=== PATIENT | male | born 1990 | race Asian ===

== ENCOUNTER 2017-02-28 12:13 | Emergency (ER) | payer OTHER ==
--- NOTE | 2017-02-28 12:45 | EDPHY ---
H & P Time Seen by Provider: 02/28/17 12:24 HPI/ROS: CHIEF COMPLAINT: Right lower abdominal and groin pain HISTORY OF PRESENT ILLNESS: 26-year-old male presents to the emergency department by private vehicle complaining of pain in his right low abdomen and groin area. The patient was doing some lifting over last 2 weeks and was starting to have some pain in his right lower abdomen and groin. He has been to urgent care as well as his primary care provider. He was told that his "testicles were normal and ". However they could not assess for possible inguinal hernia. The patient has an order for an outpatient testicular ultrasound ordered by his primary care provider. No urinary difficulties. No flank pain. No chest pain or difficulty breathing. His pain is worse with movement. REVIEW OF SYSTEMS: Constitutional: No fever, no chills. Eyes: No double or blurry vision. ENT: No sore throat. Respiratory: No cough, no shortness of breath. Cardiac: No chest pain. Gastrointestinal: See above. No vomiting or diarrhea. Genitourinary: No dysuria. Musculoskeletal: No neck or back pain. Skin: No rashes. Neurological: No headache. Past Medical/Surgical History: Negative Social History: Single and lives in [place] Smoking Status: Never smoked Physical Exam: General Appearance: Alert, no distress. Eyes: Pupils equal and round. Extraocular motions are all intact. ENT: Mouth: Mucous membranes moist. Respiratory: No wheezing, rhonchi, or rales, lungs are clear to auscultation. Cardiovascular: Regular rate and rhythm. Gastrointestinal: Abdomen is soft and nontender, no masses, no rebound or guarding, bowel sounds normal. No CVA tenderness bilaterally. Genitourinary: Declined examination Neurological: Alert and oriented x 3, cranial nerves II through XII grossly intact Skin: Warm and dry, no rashes. Musculoskeletal: Nontender to palpate along the cervical, thoracic or lumbar spine. Neck is supple. Extremities: Full range of motion and no peripheral edema. Psychiatric: Patient is oriented X 3, there is no agitation. Constitutional: Initial Vital Signs Temperature (C) 36.5 C 02/28/17 12:16 Heart Rate 74 02/28/17 12:16 Respiratory Rate 20 02/28/17 12:16 Blood Pressure 113/85 H 02/28/17 12:16 O2 Sat (%) 94 02/28/17 12:16 O2 Delivery Mode Room Air Allergies/Adverse Reactions: No Known Allergies Allergy (Verified 02/28/17 12:15) Home Medications: Medication Instructions Recorded NK [No Known Home Meds] 06/12/13 Medical Decision Making - Diagnostics Imaging Results: Imaging Impressions Abdomen Ultrasound 02/28/17 12:37 Impression: Negative. No hernia. Findings discussed with Emergency Department physician podiatrist assistant, Sara Srinivasan , at 1356 hours on February 28, 2017. Imaging: Discussed imaging studies w/ superintendent communications Radiologist ED Course/Re-evaluation: 26-year-old male presents to the emergency department with right groin pain. The patient was initially seen in urgent care as well as by his primary care provider.. He was told that he likely had an inguinal hernia. The patient initially refused a genitourinary exam. A limited abdominal ultrasound was ordered which revealed no evidence of hematoma or inguinal hernia. Patient was able to provide a urine specimen which revealed no blood and no signs of infection. Ultimately the patient agreed to have genitourinary exam. nurse Daniel was present at bedside for the exam. He has uncircumcised penis. Both testicles are descended. He has pain with palpation the left inguinal canal, however no palpable hernia or mass. Patient states that his pain has improved even since yesterday. I explained that it could just be a muscular strain. I did give him referral to general surgeon on-call and told him that if he has any problems he could follow up. He should follow up sooner if he developed worsening pain or any other concerns. Patient does not have any abdominal pain with palpation. He was serially re- examined. He does not have any evidence of acute appendicitis. I do not think CT imaging is indicated. Differential Diagnosis: Including but not limited to inguinal hernia, hematoma, acute appendicitis, muscular strain, muscular spasm, urinary tract infection, pyelonephritis, kidney stone - Data Points Laboratory Results: 02/28/17 13:05 Urine Color YELLOW Urine Appearance CLEAR Urine pH 5.0 (5.0-7.5) Ur Specific [place] 1.021 (1.002-1.030) Urine Protein NEGATIVE (NEGATIVE) Urine Ketones TRACE H (NEGATIVE) Urine Blood NEGATIVE (NEGATIVE) Urine Nitrate NEGATIVE (NEGATIVE) Urine Bilirubin NEGATIVE (NEGATIVE) Urine Urobilinogen NEGATIVE EU EU (0.2-1.0) Ur Leukocyte Esterase NEGATIVE (NEGATIVE) Urine RBC 1-3 /hpf /hpf (0-3) Urine WBC NONE SEEN /hpf /hpf (0-3) Ur Epithelial Cells NONE SEEN /lpf /lpf (NONE-1+) Hyaline Casts 1-5 /lpf /lpf (0-1) Urine Mucus 2+ /lpf H /lpf (NONE-1+) Urine Glucose NEGATIVE (NEGATIVE) Departure - Departure Disposition: Home, Routine, Self-Care Clinical Impression: Right groin pain Condition: Good Instructions: Groin Pain (ED) Additional Instructions: Do not lift anything heavy. Ibuprofen 600 mg 3 times daily for for pain as needed. Return to the emergency department if he developed increasing pain, difficulty urinating, or if you feel worse in any way. Referrals: Jere Allen MD [Primary Care Provider] - 1-2 days without fail Elena Castillo MD [Medical Doctor] - 2-3 days, if not improved (General surgeon on-call)
[2017-02-28 13:18] LABS: COLOR YELLOW; LEUKOCYTE ESTERASE,URINE NEGATIVE (NEGATIVE); NITRITE,URINE NEGATIVE (NEGATIVE)
[2017-02-28 13:22] LABS: MUCUS 2+ /lpf (NONE-1+)
[2017-02-28 13:24] LABS: WBC,URINE NONE SEEN /hpf (0-3)
[2017-02-28 14:51] VITALS: BP 124/79; PULSE 66; RESP 17; TEMP 98.4; O2SAT 97
== END 2017-02-28 14:51 | disposition home or self-care (01) ==
DX: R10.31 Right lower quadrant pain (principal)